=== PATIENT | female | born 1975 | race Caucasian/White ===

== ENCOUNTER 2018-12-19 13:45 | Inpatient (IN) | payer OTHER ==
[~2018-12-19] VITALS: Ht 160 cm; Wt 76.7 kg
[2018-12-19] MEDS ORDERED: SINGULAIR 5MG5 MG PO (14:49)
[2018-12-21] MEDS ORDERED: OBSTETRIX DHA1 EACH PO (07:51)
== END 2018-12-21 11:51 | DRG 833 ==
LOC: LDR 13:45 → OB/GYN 13:45
PROVIDERS: ADMIT Obstetrics & Gynecology
PROC: BY4FZZZ Ultrasonography of Third Trimester, Single Fetus (ICD-10-PCS; principal; 2018-12-19)
PROC: BU4CZZZ Ultrasonography of Uterus and Ovaries (ICD-10-PCS; 2018-12-19)
PROC: 4A1HXCZ Monitoring of Products of Conception, Cardiac Rate, External Approach (ICD-10-PCS; 2018-12-19)
DX: O60.03 Preterm labor without delivery, third trimester (principal); Z34.83 Encounter for supervision of other normal pregnancy, third trimester

== ENCOUNTER 2019-01-31 10:58 | Outpatient (CLI) | payer OTHER ==
[~2019-01-31 10:58] MED LIST: OBSTETRIX DHA1 EACH PO; SINGULAIR 5MG5 MG PO
== END 2019-01-31 21:31 | disposition home or self-care (01) ==
LOC: OBS/DEL 10:58
DX: O47.1 False labor at or after 37 completed weeks of gestation (principal); Z34.83 Encounter for supervision of other normal pregnancy, third trimester

== ENCOUNTER 2019-02-01 15:00 | Inpatient (IN) | payer OTHER ==
[~2019-02-01] VITALS: Ht 162.6 cm; Wt 78.9 kg
[2019-02-08] MEDS ORDERED: PROVENTIL HFA6.7 GM IH (13:27)
== END 2019-02-10 10:58 | disposition home or self-care (01) | DRG 807 ==
LOC: OB/GYN 02-08 11:54 → LDR 02-08 11:54 → OB/GYN 02-08 19:52
PROVIDERS: ADMIT Obstetrics & Gynecology
PROC: 10E0XZZ Delivery of Products of Conception, External Approach (ICD-10-PCS; principal; 2019-02-08)
PROC: 3E033VJ Introduction of Other Hormone into Peripheral Vein, Percutaneous Approach (ICD-10-PCS; 2019-02-08)
PROC: 4A1HXCZ Monitoring of Products of Conception, Cardiac Rate, External Approach (ICD-10-PCS; 2019-02-08)
DX: O80 Encounter for full-term uncomplicated delivery (principal); Z37.0 Single live birth; Z3A.38 38 weeks gestation of pregnancy